=== PATIENT | male | born 1990 | race Caucasian/White ===

== ENCOUNTER 2024-11-02 10:38 | Inpatient (IN) | payer MEDICAID ==
[~2024-11-02] VITALS: Ht 195.6 cm; Wt 139.0 kg
[2024-11-02 12:55] LABS: Hematocrit 47.8 % (37.0-53.0); Hemoglobin 16.9 g/dL (13.5-17.5); Mean Corpuscular HGB Conc 35.4 g/dL (31.5-36.5); Mean Corpuscular Volume 79 fL (80-100); Mean Platelet Volume 10.8 fL (9.1-12.4); Platelet Count 260 K/mm3 (150-400); RDW Coefficient Variation 12.5 % (11.7-14.2); RDW Standard Deviation 35.3 fL (35.1-46.3); Red Blood Cell Count 6.04 M/mm3 (4.30-5.90); White Blood Cell Count 13.02 K/mm3 (4.00-11.30)
[2024-11-02 13:17] LABS: Albumin, Blood 3.8 g/dL (3.4-5.0); Albumin/Globulin Ratio 0.9 (0.8-1.8); Bun/Creatinine Ratio 25.1 (12.0-20.0); Calcium, Blood 9.4 mg/dL (8.5-10.1); Creatinine, Blood 0.68 mg/dL (0.60-1.20); Globulin, Blood 4.4 g/dL (2.2-4.0); Total Protein, Blood 8.2 g/dL (6.4-8.2)
[2024-11-02] MEDS ORDERED: Ondansetron HCl 2 MG / ML 2ML Vial IV ONE (13:20)
[2024-11-02] MEDS ORDERED: Morphine Sulfate 4 MG/1 ML Injection IV ONE (13:20)
[2024-11-02 13:25] LABS: BAND PERCENT MAN 1 % (0-8); BASOPHILS PERCENT MAN 0 % (0-2); EOSINOPHILS PERCENT MAN 0 % (0-6); MONOCYTES ABSOLUTE MAN 0.39 K/mm3 (0.16-1.47); MONOCYTES PERCENT MAN 3 % (4-13); NEUTROPHILS ABSOLUTE MAN 12.62 K/mm3 (1.96-9.15); SEG NEUTROPHILS PERCENT MAN 96 % (41-73); TOTAL CELLS COUNTED 100
[2024-11-02] MEDS ORDERED: NS 1,000 ML IV SCH (13:35)
[2024-11-02] MEDS ORDERED: Morphine Sulfate 4 MG/1 ML Injection ONE (13:38)
[2024-11-02] MEDS ORDERED: Ondansetron HCl 2 MG / ML 2ML Vial ONE (13:38)
[2024-11-02] MEDS ORDERED: Lactated Ringer's 1,000 ML IV SCH ×2 (14:55→21:00)
[2024-11-02] MEDS ORDERED: Piperacillin/Tazobactam Sod 4.5 GM in NS 100 ML IV ONE (16:45)
[2024-11-02] MEDS ORDERED: Morphine Sulfate 4 MG/1 ML Injection IV PRN (17:30)
[2024-11-02] MEDS ORDERED: Ondansetron HCl 2 MG / ML 2ML Vial IV PRN (17:30)
[2024-11-02] MEDS ORDERED: FLU VACC TS2024-25(6MOS UP)/PF 45 MCG/0.5 ML SYRINGE IM ONE (17:35)
[2024-11-02 17:40] LABS: CORONAVIRUS COVID-19 AG Negative (NEGATIVE); INFLUENZA A AG Negative (NEGATIVE); INFLUENZA B AG Negative (NEGATIVE)
[2024-11-02 20:07] VITALS: BP 129/90
[2024-11-02] MEDS ORDERED: Lactobacil 2-S.Thermo-Bifido 1 1 Cap PO SCH (21:00)
[2024-11-02] MEDS ORDERED: Insulin Regular 100 UNIT/ML 10ML Vial SC SCH (21:00)
[2024-11-03] MEDS ORDERED: Piperacillin/Tazobactam Sod 4.5 GM in NS 100 ML IV SCH
[2024-11-03 05:56] VITALS: BP 132/90
--- NOTE | 2024-11-03 06:01 | NUR ---
2003: ACCOMPANIED TO ROOM WITH STAFF AND FIANCE. ORIENTED TO ROOM AND CALL LIGHT SYSTEM. HX OBTAINED. NO EMISIS THROUGHOUT THE NIGHT. MEDICATED FOR PAIN IN EPIGASTRIC AREA AND ZOFRAN FOR NAUSEA. SLEPT THROUGHT THE NIGHT AND REPORTS FEELING MUCH BETTER THIS AM. INDPENDENT AND FIANCE IN ROOM.
[2024-11-03 06:13] LABS: BASOPHILS ABSOLUTE AUTO 0.02 K/mm3 (0.00-0.23); BASOPHILS PERCENT AUTO 1 % (0-2); EOSINOPHILS ABSOLUTE AUTO 0.08 K/mm3 (0.00-0.68); EOSINOPHILS PERCENT AUTO 2 % (0-6); Hematocrit 37.5 % (37.0-53.0); Hemoglobin 13.3 g/dL (13.5-17.5); IMMATURE GRAN ABSOLUTE AUTO 0.03 K/mm3 (0.00-0.10); IMMATURE GRAN PERCENT AUTO 1 % (0-1); LYMPHOCYTES ABSOLUTE AUTO 0.84 K/mm3 (0.84-5.20); LYMPHOCYTES PERCENT AUTO 19 % (21-46); MONOCYTES ABSOLUTE AUTO 0.44 K/mm3 (0.16-1.47); MONOCYTES PERCENT AUTO 10 % (4-13); Mean Corpuscular HGB 28.1 pg (26.0-34.0); Mean Corpuscular HGB Conc 35.5 g/dL (31.5-36.5); Mean Corpuscular Volume 79 fL (80-100); NEUTROPHILS ABSOLUTE AUTO 2.98 K/mm3 (1.96-9.15); NEUTROPHILS PERCENT AUTO 68 % (41-73); Platelet Count 168 K/mm3 (150-400); RDW Coefficient Variation 12.7 % (11.7-14.2); RDW Standard Deviation 36.1 fL (35.1-46.3); Red Blood Cell Count 4.74 M/mm3 (4.30-5.90); White Blood Cell Count 4.39 K/mm3 (4.00-11.30)
[2024-11-03 06:53] LABS: Albumin, Blood 2.9 g/dL (3.4-5.0); Albumin/Globulin Ratio 0.9 (0.8-1.8); Bilirubin, Total 1.5 mg/dL (0.1-1.0); Bun/Creatinine Ratio 17.4 (12.0-20.0); Calcium, Blood 8.7 mg/dL (8.5-10.1); Creatinine, Blood 0.63 mg/dL (0.60-1.20); Globulin, Blood 3.2 g/dL (2.2-4.0); Potassium, Blood 3.4 mmol/L (3.5-5.5)
[2024-11-03 06:54] LABS: Total Protein, Blood 6.1 g/dL (6.4-8.2)
[2024-11-03 08:07] VITALS: BP 127/93
[2024-11-03] MEDS ORDERED: Enoxaparin 40 MG/0.4 ML SYR SC SCH (09:00)
[2024-11-03 17:03] LABS: Albumin, Blood 2.9 g/dL (3.4-5.0); Albumin/Globulin Ratio 0.9 (0.8-1.8); Bilirubin, Total 1.2 mg/dL (0.1-1.0); Bun/Creatinine Ratio 15.5 (12.0-20.0); Calcium, Blood 8.3 mg/dL (8.5-10.1); Creatinine, Blood 0.78 mg/dL (0.60-1.20); Globulin, Blood 3.2 g/dL (2.2-4.0); Potassium, Blood 3.3 mmol/L (3.5-5.5); Total Protein, Blood 6.1 g/dL (6.4-8.2)
--- NOTE | 2024-11-03 17:31 | NUR ---
SHIFT SUMMARY PT AWAKE DURING SHIFT REPORT THIS AM. ADMITTED FOR ENTERITIS ON NOC SHIFT. RECENT G.B. SX ON 10/14, PER PT. MEDICATED FOR NAUSEA X1 THIS AM, BUT HAS CONTINUED TO REPORT IMPROVEMENT SINCE; REMAINS ON CL DIET AND TOLERATING WELL. IVF'S AND IV ABX INFUSING PER EMAR. MEDICATED FOR C/O PAIN TO LUQ X1 THIS AFTERNOON. FAMILY IN AND OUT THRU OUT THE DAY. DR HERRERA IN TO SEE PT AND DISCUSS PLAN OF CARE. MRI OF ABD ORDERED. EQUINE VET LATER REPORTED THAT PT'S WT. IS GREATER THAN EQUIPMENT LIMITS. DR HERRERA NOTIFIED. NEW ORDERS PLACED. ADDITIONAL LABS ORDERED FOR THIS AFTERNOON, AWAITING RESULTS. PT IS INDEPENDENT IN AND TO BTHRM. DENIES FURTHER NEEDS AT THIS TIME. CALL LT IN REACH.
[2024-11-03 19:37] VITALS: BP 139/96
[2024-11-04 04:08] VITALS: BP 115/77
[2024-11-04 06:20] LABS: Albumin, Blood 2.8 g/dL (3.4-5.0); Albumin/Globulin Ratio 0.9 (0.8-1.8); Bilirubin, Total 1.2 mg/dL (0.1-1.0); Bun/Creatinine Ratio 11.9 (12.0-20.0); Calcium, Blood 8.1 mg/dL (8.5-10.1); Creatinine, Blood 0.67 mg/dL (0.60-1.20); Globulin, Blood 3.1 g/dL (2.2-4.0); Potassium, Blood 3.2 mmol/L (3.5-5.5); Total Protein, Blood 5.9 g/dL (6.4-8.2)
--- NOTE | 2024-11-04 07:01 | NUR ---
AAOX4, PLEASANT AND COOPERATIVE WITH CARES. INDEPENDENT IN ROOM, USES CALL LIGHT FOR NEEDS. PAIN IN EPIGASTRIC AREA, 4MG MORPHINE X1. CLEAR LIQUID DIET. GI PANEL NEEDED, SUPPLIES IN ROOM. NO ACUTE NEEDS OVERNIGHT.
[2024-11-04 07:51] VITALS: BP 137/92
[2024-11-04] MEDS ORDERED: Potassium Chloride 20 MEQ in NS 90 ML IV ONE (08:30)
[2024-11-04] MEDS ORDERED: NS 250 ML IV PRN (08:45)
[2024-11-04] MEDS ORDERED: AMOCLA875 PO (16:51)
[2024-11-04] MEDS ORDERED: OXAYDO5 M3 PO (16:52)
[2024-11-04] MEDS ORDERED: ONDA4ODT MM (16:52)
--- NOTE | 2024-11-04 17:25 | NUR ---
PATIENT DC'D TO HOME WITH FAMILY. DC INSTRUCTIONS AND EDUCATION DISCUSSED WITH PATIENT AND COPY PROVIDED. RX MEDICATIONS FAXED TO [facility]. HARD SCRIPT FOR OXYCODONE GIVEN TO PATIENT. PATIENT DENIES ANY FURTHER QUESTIONS OR CONCERNS.
== END 2024-11-04 17:23 | disposition home or self-care (01) | DRG 872 ==
LOC: ER 10:38 → ERHOLD 17:31 → MEDS 17:31
PROVIDERS: Internal Medicine; Student in an Organized Health Care Education/Training Program; ADMIT Internal Medicine
DX: A41.9 Sepsis, unspecified organism (principal); R65.20 Severe sepsis without septic shock; I10 Essential (primary) hypertension; K52.9 Noninfective gastroenteritis and colitis, unspecified; K21.9 Gastro-esophageal reflux disease without esophagitis; K76.0 Fatty (change of) liver, not elsewhere classified; R79.89 Other specified abnormal findings of blood chemistry; E11.65 Type 2 diabetes mellitus with hyperglycemia; Z90.49 Acquired absence of other specified parts of digestive tract; Z28.21 Immunization not carried out because of patient refusal
CPT/HCPCS: 36415; 74177; 80053; 82947; 83036; 83605; 83690; 85025; 87428-QW; 93005; 93010; 96361; 96374-59; 96375; 99285-25; A9270; J1815; J2270; J2405; J2543; J3480; J7030; J7050; J7120; Q9967